=== PATIENT | male | born 1995 | race Caucasian/White ===

== ENCOUNTER 2017-04-09 17:34 | Emergency (ER) | payer OTHER ==
[2017-04-09 17:58] VITALS: BP 120/74
--- NOTE | 2017-04-09 17:59 | UC ---
Lower Extremity/Ankle HPI - HPI Summary HPI Summary: Patient was playing sports, was running, person fell ontop of him , foot underneath. cant bear weight and patient's left foot is swollen - History of Current Complaint Stated Complaint: LEFT FOOT INJURY Time Seen by Provider: 04/09/17 17:50 Hx Obtained From: Patient Onset/Duration: Sudden Onset, Lasting Hours Severity Initially: Moderate Severity Currently: Moderate Aggravating Factor(s): Standing, Ambulation Alleviating Factor(s): Rest Able to Bear Weight: No - Allergies/Home Medications Allergies/Adverse Reactions: Allergies Allergy/AdvReac Type Severity Reaction Status Date / Time No Known Allergies Allergy Verified 04/09/17 17:58 Home Medications: Home Medications NK [No Home Medications Reported] 04/09/17 [History Confirmed 04/09/17] PMH/Surg Hx/FS Hx/Imm Hx Previously Healthy: Yes - Family History Known Family History: Positive: Cardiac Disease, Hypertension Review of Systems Constitutional: Negative Skin: Negative Eyes: Negative ENT: Negative Respiratory: Negative Cardiovascular: Negative Gastrointestinal: Negative Genitourinary: Negative Motor: Negative Neurovascular: Negative Musculoskeletal: Arthralgia, Decreased ROM, Edema, Myalgia Neurological: Negative Psychological: Negative Is Patient Immunocompromised?: No All Other Systems Reviewed And Are Negative: Yes Physical Exam Triage Information Reviewed: Yes Appearance: Well-Appearing, Well-Nourished, Pain Distress Vital Signs Reviewed: Yes Eye Exam: Normal ENT: Positive: Hearing grossly normal, Pharynx normal, TMs normal Dental Exam: Normal Neck exam: Normal Neck: Positive: Supple, Nontender, No Lymphadenopathy Respiratory Exam: Normal Respiratory: Positive: Chest non-tender, Lungs clear, Normal breath sounds Abdominal Exam: Normal Abdomen Description: Positive: Nontender, No Organomegaly, Soft Bowel Sounds: Positive: Present Musculoskeletal: Positive: Edema @ - over the top of the left foot, difficulty moving the toes Neurological Exam: Normal Psychological Exam: Normal Skin Exam: Normal Lower Extremity Course/Dx - Course Course Of Treatment: hx obtained, exam performed, meds reviewed, xray obtained, posterior splint applied. - Differential Dx/Diagnosis Differential Diagnosis/HQI/PQRI: Contusion, Dislocation, Fracture (Closed), Sprain, Strain Provider Diagnoses: 1st metatarsal fracture of left foot. 2nd metatarsal fracutre of left foot. Cuneiform fracturer of left foot. possible LIs Franc injury - Physician Notifications Discussed Patient Care With: Aditya Stanley Time Discussed With Above Provider: 19:48 Instructed by Provider To: Other - will follow up in office tomorrow, Dr Stanley instructed provider to place a posterior splint and be non weight bearing. Follow up with Dr Vásquez or Dr Lucas. tomorrow Discharge - Discharge Plan Condition: Stable Disposition: HOME Patient Education Materials: Foot Fracture in Adults (ED) Referrals: No Primary Care Phys,NOPCP [Primary Care Provider] - Aditya Lucas MD [Medical Doctor] - Additional Instructions: 1. stay non weight bearing 2. Keep foot elevated and follow up with Dr Lucas in the morning.
--- NOTE | 2017-04-09 18:52 | RAD ---
INDICATION: Left foot injury. TECHNIQUE: 3 views of the left foot were obtained. FINDINGS: There is soft tissue swelling present along the dorsal medial aspect of the foot. There is a fracture through the medial base of the first metatarsal extending to the first tarsometatarsal joint. There also appears to be a small fracture fragment arising from the medial aspect of the medial cuneiform bone. There is a faint radiolucent line which projects over the proximal diaphysis of the second metatarsal most consistent with a nondisplaced fracture. There is also a small fracture fragment which projects between the bases of the first and second metatarsals. IMPRESSION: 1. INTRA-ARTICULAR FRACTURE AT THE MEDIAL BASE OF THE FIRST METATARSAL. 2. FRACTURE OF THE MEDIAL ASPECT OF THE MEDIAL CUNEIFORM BONE. 3. TRANSVERSE NONDISPLACED FRACTURE OF THE PROXIMAL SECOND METATARSAL. 4. SMALL FRACTURE FRAGMENT BETWEEN THE BASES OF THE FIRST AND SECOND METATARSALS POSSIBLY INDICATING A LISFRANC INJURY.
== END 2017-04-09 20:27 | disposition home or self-care (01) ==
LOC: UCCORT 17:34
DX: S92.312A Displaced fracture of first metatarsal bone, left foot, initial encounter for closed fracture (principal); S92.242A Displaced fracture of medial cuneiform of left foot, initial encounter for closed fracture; S92.325A Nondisplaced fracture of second metatarsal bone, left foot, initial encounter for closed fracture; W03.XXXA Other fall on same level due to collision with another person, initial encounter; Y93.79 Activity, other specified sports and athletics; Y92.9 Unspecified place or not applicable
CPT/HCPCS: 99201; G0463

== ENCOUNTER 2018-09-09 10:55 | Emergency (ER) | payer OTHER ==
[2018-09-09 11:52] VITALS: BP 123/95
[2018-09-09] MEDS ORDERED: Albuterol/Ipratropium NEB.SOL* Albuterol 2.5 MG/Ipratropium 0.5 MG 3 ML INH ONE (12:21)
--- NOTE | 2018-09-09 12:27 | UC ---
Throat Pain/Nasal Kyrie HPI - HPI Summary HPI Summary: Ill for about 2 weeks. Started with mild vomiting and a few bouts of diarrhea and now has progressed to head congestion, moist cough. - History of Current Complaint Chief Complaint: UCGeneralIllness Stated Complaint: ST Time Seen by Provider: 09/09/18 12:15 Hx Obtained From: Patient Onset/Duration: Gradual Onset Severity: Mild Pain Intensity: 7 Cough: Productive - Greenish/yellow sputum at times as well as greenish/yellow nasal coryza Associated Signs & Symptoms: Positive: Sinus Discomfort, Nasal Discharge - Epiglottits Risk Factors Epiglottis Risk Factors: Negative - Allergies/Home Medications Allergies/Adverse Reactions: Allergies Allergy/AdvReac Type Severity Reaction Status Date / Time No Known Allergies Allergy Verified 04/09/17 17:58 PMH/Surg Hx/FS Hx/Imm Hx Previously Healthy: Yes - Surgical History Surgical History: None - Family History Known Family History: Positive: Cardiac Disease, Hypertension - Social History Occupation: Student Lives: Dormitory/Roommates Alcohol Use: Occasionally Substance Use Type: None Smoking Status (MU): Never Smoked Tobacco - Immunization History Most Recent Influenza Vaccination: no Review of Systems All Other Systems Reviewed And Are Negative: Yes Constitutional: Positive: Fever, Chills Skin: Positive: Negative Eyes: Positive: Negative ENT: Positive: Sore Throat, Nasal Discharge, Sinus Congestion Respiratory: Positive: Cough - Productive Cardiovascular: Positive: Negative Gastrointestinal: Positive: Vomiting, Diarrhea - Vomiting and diarrhea about 2 weeks ago which has resolved Genitourinary: Positive: Negative Motor: Positive: Negative Neurovascular: Positive: Negative Musculoskeletal: Positive: Negative Neurological: Positive: Headache - Feels weak and tired with occasional mild headache., Weakness Is Patient Immunocompromised?: No Physical Exam Triage Information Reviewed: Yes Appearance: Well-Appearing, No Pain Distress, Well-Nourished Vital Signs: Initial Vital Signs Temp 99.3 F 09/09/18 11:46 Pulse 80 09/09/18 11:46 Resp 16 09/09/18 11:46 BP 123/95 09/09/18 11:46 Pulse Ox 97 09/09/18 11:46 Vital Signs Reviewed: Yes Eye Exam: Normal ENT: Positive: Nasal congestion, Nasal drainage - Turbinates inflamed with purulent yellow nasal coryza Neck exam: Normal Neck: Positive: Supple, Nontender, No Lymphadenopathy Respiratory: Positive: Rhonchi, Wheezing - Mild rhonchi LLL posteriorly with mild wheezing with forced expiration. Cardiovascular Exam: Normal Abdominal Exam: Normal Bowel Sounds: Positive: Present Musculoskeletal Exam: Normal Neurological Exam: Normal Psychological Exam: Normal Skin Exam: Normal Throat Pain/Nasal Course/Dx - Course Course Of Treatment: Pt comfortable here. [place] better after Duoneb treatment. He prefers no to have a CXR. Flu and strep tests negative. I believe he has a LLL pneumonia with continued rhonchi in the LLL posteriorly, therefore I am going to treat him for clinical Community Acquired Pneumonia. - Differential Dx/Diagnosis Provider Diagnosis: Community acquired pneumonia Discharge - Sign-Out/Discharge Documenting (check all that apply): Patient Departure All imaging exams completed and their final reports reviewed: No Studies - Discharge Plan Condition: Fair Disposition: HOME Prescriptions: DOXYcycline CAP(*) [DOXYcycline 100MG CAP(*)] 100 mg PO BID 7 Days #14 cap Patient Education Materials: Community Acquired Pneumonia (DC) Forms: *Physical Education Release Referrals: No Primary Care Phys,NOPCP [Primary Care Provider] - Additional Instructions: Increase fluids. No diary products or antacids 2 hours before and 2 hours after you take the Doxycycline but be sure and take it with food as it may cause an upset stomach. Definite recheck at the [facility] in 3-4 days if no improvement. - Billing Disposition and Condition Condition: FAIR Disposition: Home - Attestation Statements Provider Attestation: Per institutional requirements, I have reviewed the chart, however, I was not consulted specifically or made aware of this patient by the midlevel provider. I did not personally evaluate, interact with , or disposition this patient.
[2018-09-09 12:33] LABS: Influenza A Molecular NEGATIVE (Negative); Influenza B Molecular NEGATIVE (Negative)
== END 2018-09-09 13:05 | disposition home or self-care (01) ==
LOC: UCCORT 10:55
DX: J18.9 Pneumonia, unspecified organism (principal)
CPT/HCPCS: 87651; 99212; A9270-GY; G0463